=== PATIENT | female | born 2005 | race Caucasian/White ===

== ENCOUNTER 2023-01-25 07:43 | Emergency (ER) | payer BC ==
[~2023-01-25] VITALS: Ht 162.6 cm; Wt 57.6 kg
[2023-01-25 07:48] VITALS: BP 110/90
[2023-01-25] MEDS ORDERED: KETOROLAC 15 MG/ML VIAL IVP ONE (08:05)
[2023-01-25] MEDS ORDERED: MORPHINE SULFATE 4 MG/ML SYR IVP ONE (08:15)
[2023-01-25] MEDS ORDERED: HYDROcodone/APAP 5/325 MG 1 TAB TAB PO ONE (08:25)
[2023-01-25 08:43] LABS: APPEARANCE,URINE CLEAR (CLEAR); BILIRUBIN,URINE NEGATIVE (NEGATIVE); BLOOD, URINE 3+ (NEGATIVE); LEUKOCYTE ESTERASE ,URINE TRACE (NEGATIVE); NITRITE, URINE NEGATIVE (NEGATIVE); PH,URINE 6.5 (5.0-9.0); UGLUCOSE NEGATIVE (NEGATIVE)
[2023-01-25 08:45] LABS: BASOPHILS % (AUTO) 0.4 % (0.0-2.0); EOSINOPHILS # (AUTO) 0.1 K/uL (0-0.4); EOSINOPHILS % (AUTO) 1.3 % (0.0-4.0); HEMATOCRIT 39.8 % (36-48); HEMOGLOBIN 13.3 g/dL (12.0-16.0); LYMPHOCYTES # (AUTO) 2.4 K/uL (2.5-16.5); LYMPHOCYTES % (AUTO) 45.3 % (20.5-51.1); MEAN CORPUSCULAR HEMOGLOBIN 30 pg (27-31); MEAN CORPUSCULAR HGB CONC 33 g/dL (33-37); MEAN CORPUSCULAR VOLUME 90.6 fL (80-94); MONOCYTES # (AUTO) 0.3 K/uL (0.8-1.0); MONOCYTES % (AUTO) 6.3 % (1.7-9.3); NEUTROPHILS # (AUTO) 2.5 K/uL (1.8-7.7); NEUTROPHILS % (AUTO) 46.7 % (42.2-75.2); PLATELET COUNT (AUTO) 244 K/uL (140-450); RED BLOOD CELL COUNT(AUTO) 4.39 MIL/uL (4.20-5.40); RED CELL DISTRIBUTION WIDTH 12.7 % (11.6-13.7); WHITE BLOOD COUNT (AUTO) 5.4 K/uL (4.5-11.0)
[2023-01-25 08:52] LABS: ALBUMIN 4.6 g/dL (3.4-5.0); ANION GAP 11.7 (8-16); CARBON DIOXIDE 24.2 mmol/L (21-32); CREATININE 0.7 mg/dL (0.6-1.3); POTASSIUM 3.9 mmol/L (3.5-5.1); TOTAL BILIRUBIN 0.5 mg/dL (0.0-1.0)
[2023-01-25 08:54] LABS: COLOR,URINE SL RED (YELLOW)
[2023-01-25 08:55] LABS: RBC,URINE 0-5 /HPF (0-5)
[2023-01-25] MEDS ORDERED: HYDR-5080 PO (09:32)
[2023-01-25 09:46] VITALS: BP 113/58
== END 2023-01-25 09:46 | disposition home or self-care (01) ==
LOC: MED 07:43
DX: R10.30 Lower abdominal pain, unspecified (principal)
CPT/HCPCS: 36415; 80053; 81001; 81025; 83690; 85025; 87086; 96374; 99283; J1885; J2270

== ENCOUNTER 2024-04-02 09:52 | Emergency (ER) | payer BC ==
[~2024-04-02] VITALS: Ht 160 cm; Wt 59.0 kg
[~2024-04-02 09:52] MED LIST: HYDR-5080 PO
[2024-04-02 10:07] VITALS: BP 114/69; PULSE 84; RESP 18; TEMP 98.7; O2SAT 100
[2024-04-02] MEDS: LIDOCAINE 5% 1 EA PATCH TP ONE (12:32)
[2024-04-02] MEDS: KETOROLAC 30 MG/ML VIAL IM ONE (12:32)
[2024-04-02] MEDS ORDERED: HYDROcodone/APAP 5/325 MG 1 TAB TAB PO ONE (13:25)
[2024-04-02] MEDS ORDERED: IBUP-1842 PO (13:34)
[2024-04-02] MEDS ORDERED: LID5T TP (13:34)
[2024-04-02] MEDS ORDERED: CYCL-711 PO (13:34)
[2024-04-02 13:44] VITALS: BP 123/60; PULSE 80; RESP 18; TEMP 98.3; O2SAT 98
== END 2024-04-02 13:44 | disposition home or self-care (01) ==
LOC: MED 09:52
DX: S16.1XXA Strain of muscle, fascia and tendon at neck level, initial encounter (principal); X58.XXXA Exposure to other specified factors, initial encounter; Y93.39 Activity, other involving climbing, rappelling and jumping off; Y92.89 Other specified places as the place of occurrence of the external cause; Y99.8 Other external cause status
CPT/HCPCS: 81025; 96372; 99283; J1885